=== PATIENT | female | born 1960 | race Caucasian/White ===

== ENCOUNTER → 2021-02-17 | Outpatient (CLI) | payer OTHER ==
[~2021-02-17] MED LIST: ALLEGRA ALLERG180 MG PO; ALLEGRA30 MG PO; CLARITIN; COZAAR 50MG50 MG/TAB PO; FISH OIL 1000MG1 CAP PO; GLUCOPHAGE500 MG/TAB PO; HYDROCODONE/APAP; LIPITOR 10MG10 MG PO; LORTAB 7.5/5001 TAB PO; NORCO 325 MG-7.1 TAB PO; PHENERGAN 25 TA25 MG PO; PHENERGAN25 MG RC; PRAVACHOL 40MG40 MG PO; PREVACID 15MG15 M1; PREVACID 15MG15 M1 PO; PREVACID30 MG PO; PRILOTC PO; VALIUM5 MG PO; ZOFRAN ODT4 MG PO
== END ==
LOC: MC.RAD 08:34
DX: Z12.31 Encounter for screening mammogram for malignant neoplasm of breast (principal)